=== PATIENT | male | born 1960 | race Caucasian/White ===

== ENCOUNTER 2021-08-16 07:07 | Emergency (ER) | payer BC ==
[2021-08-16 07:24] VITALS: TEMP 98.1
--- NOTE | 2021-08-16 08:35 | XR ---
EXAMINATION TYPE: XR elbow complete LT DATE OF EXAM: 08/16/2021 CLINICAL HISTORY: pain TECHNIQUE: Frontal, lateral and oblique images of the left elbow are obtained. COMPARISON: None. FINDINGS: There is no acute fracture/dislocation evident of the elbow. No abnormal fat pad signs ar e seen. The overlying soft tissue appears unremarkable. IMPRESSION: There is no acute fracture or dislocation of the elbow. ICD 10 NO FRACTURE, INITIAL EVALUATION
--- NOTE | 2021-08-16 08:36 | XR ---
EXAMINATION TYPE: XR wrist complete LT DATE OF EXAM: 08/16/2021 CLINICAL HISTORY: pain TECHNIQUE: Frontal, lateral and oblique images of the left wrist are obtained. COMPARISON: None. FINDINGS: Bony fragmentation noted on the lateral projection which may reflect triquetral fracture. D orsal soft tissue swelling. IMPRESSION: Correlate for triquetral fracture.
--- NOTE | 2021-08-16 09:09 | ED ---
Upper Extremity HPI - General Chief Complaint: Extremity Injury, Upper Stated Complaint: fall, arm pain Time Seen by Provider: 08/16/21 08:18 Source: patient, RN notes reviewed Mode of arrival: ambulatory Limitations: no limitations - History of Present Illness Initial Comments: This a 61-year-old male presents emergency Department chief complaint of left arm injury. Patient states he went to get out of his truck, slipped on ice landing on on his left arm. Complains of left wrist, elbow pain, increased swelling throughout the night. No paresthesias no head injury no loss consciousness no other extremity injury noted. - Related Data Allergies Allergy/AdvReac Type Severity Reaction Status Date / Time Sulfa (Sulfonamide Allergy Rash/Hives Verified 08/16/21 07:20 Antibiotics) Review of Systems ROS Statement: Those systems with pertinent positive or pertinent negative responses have been documented in the HPI. ROS Other: All systems not noted in ROS Statement are negative. Past Medical History Past Medical History: Hypertension History of Any Multi-Drug Resistant Organisms: None Reported Past Surgical History: Orthopedic Surgery Additional Past Surgical History / Comment(s): L knee Past Psychological History: No Psychological Hx Reported Smoking Status: Current every day smoker Past Alcohol Use History: Daily Past Drug Use History: None Reported General Exam Limitations: no limitations General appearance: alert, in no apparent distress Head exam: Present: atraumatic, normocephalic, normal inspection Eye exam: Present: normal appearance, PERRL, EOMI. Absent: scleral icterus, conjunctival injection, periorbital swelling ENT exam: Present: normal exam, normal oropharynx, mucous membranes moist Neck exam: Present: normal inspection, full ROM. Absent: tenderness, meningismus, lymphadenopathy Respiratory exam: Present: normal lung sounds bilaterally. Absent: respiratory distress, wheezes, rales, rhonchi, stridor Cardiovascular Exam: Present: regular rate, normal rhythm, normal heart sounds. Absent: systolic murmur, diastolic murmur, rubs, gallop, clicks Extremities exam: Present: other (Moderate swelling left elbow, left wrist, ecchymosis noted, neurovascular intact, limited range of motion pain with range of motion notes left shoulder tenderness remaining extremity exam within normal limits) Course Vital Signs 08/16/21 07:21 Temperature 98.1 F Pulse Rate 58 L Respiratory 18 Rate Blood Pressure 195/91 O2 Sat by Pulse 99 Oximetry Procedures - Orthopedic Splinting/Casting Injury #1 Side: left Upper Extremity Injury Location: short arm, wrist Upper Extremity Immobilizer: sling/shoulder immobilizer, volar splint, synthetic pre-padded splint Medical Decision Making - Medical Decision Making Patient noted have wrist fracture, patient was splinted and will follow-up with orthopedics. Disposition Clinical Impression: Fracture of left carpal bone, Left elbow contusion Disposition: HOME SELF-CARE Condition: Stable Instructions (If sedation given, give patient instructions): Wrist Injury (ED) Additional Instructions: Please return to the Emergency Department if symptoms worsen or any other concerns. Is patient prescribed a controlled substance at d/c from ED?: No Referrals: Jackie Krueger III, MD [Primary Care Provider] - 1-2 days Corby Valerio DO [Doctor of Osteopathic Medicine] - 1-2 days Time of Disposition: 09:08
[2021-08-16 09:27] VITALS: BP 170/84; PULSE 80; RESP 20
== END 2021-08-16 09:33 | disposition home or self-care (01) ==
LOC: EC 07:07
DX: S62.102A Fracture of unspecified carpal bone, left wrist, initial encounter for closed fracture (principal); S50.02XA Contusion of left elbow, initial encounter; W00.0XXA Fall on same level due to ice and snow, initial encounter; I10 Essential (primary) hypertension; F17.200 Nicotine dependence, unspecified, uncomplicated; Z72.89 Other problems related to lifestyle
CPT/HCPCS: 99283